=== PATIENT | male | born 1935 | race Caucasian/White ===

== ENCOUNTER 2016-07-31 07:17 | Day surgery (SDC) | payer MEDICARE, BC ==
[~2016-07-31 07:17] MED LIST: ADVAIR 2501 DISK W/D; ASMANEX0 IH; ASPIR 8181 MG PO; BUPROPION HCL150 M PO; FLOMAX0.4 MG; FORMOTEROL INH; GLUCOSAMINE & C1 CAP; GLUCOSAMINE750 MG; HYDROCHLOROTH12.5 MG; KEPPRA XR500 MG PO; KEPPRA500 M3 PO; LEVETIRACETAM500 MG PO; LISINOPRIL10 MG PO; LISINOPRIL5 MG; LOW DOSE ASPIRI81 M3 PO; NEXIUM40 MG; NIACIN500 MG; NORCO 5/325 TAB1 TAB PO; NORCO 5/3251 TAB PO; OMEGA-3 KRILL1 EACH PO; OMEGA-31000 MG; OMEPRAZOLE20 M3 PO; PERCOCET 5/3251 TAB PO; SENNA CONCENTR8.6 MG PO; SERTRALINE HCL100 M2 PO; VERAMYST10 GM NS; VITAMIN B121000 MCG PO; VITAMIN D35000 UNI1 PO; WELLBUTRIN XL150 M1 PO; WELLBUTRIN XL150 MG PO; XANAX0.25 MG PO; ZEBETA5 M2 PO; ZETIA10 MG; ZETIA10 MG PO; ZOLOFT100 M1 PO
[2016-07-31] MEDS ORDERED: VITAMIN D31000 UNI3 PO (08:00)
[2016-07-31] MEDS ORDERED: VITAMIN B125000 MCG PO (08:01)
[2016-08-02] MEDS ORDERED: NORCO 5-325 TA1 EACH PO (12:36)
[2016-08-02] MEDS ORDERED: COLACE100 M1 PO (12:37)
== END 2016-08-02 13:05 ==
LOC: SRG 07:17 → SHSB 07:21 → ORW 09:27 → PACU 11:30 → 5WE 12:20
PROC: 0FT44ZZ Resection of Gallbladder, Percutaneous Endoscopic Approach (ICD-10-PCS; principal; 2016-07-31)
PROC: BF03YZZ Plain Radiography of Gallbladder and Bile Ducts using Other Contrast (ICD-10-PCS; 2016-07-31)
DX: K80.10 Calculus of gallbladder with chronic cholecystitis without obstruction (principal); I25.10 Atherosclerotic heart disease of native coronary artery without angina pectoris; I10 Essential (primary) hypertension; M19.042 Primary osteoarthritis, left hand; M19.041 Primary osteoarthritis, right hand; M17.0 Bilateral primary osteoarthritis of knee; Z95.1 Presence of aortocoronary bypass graft; Z98.890 Other specified postprocedural states; Z88.0 Allergy status to penicillin; Z88.8 Allergy status to other drugs, medicaments and biological substances; Z79.82 Long term (current) use of aspirin; Z79.899 Other long term (current) drug therapy; J44.9 Chronic obstructive pulmonary disease, unspecified; J45.909 Unspecified asthma, uncomplicated; J06.9 Acute upper respiratory infection, unspecified
CPT/HCPCS: J1956; J2270; J3480; J7030; J7050; Q9966